=== PATIENT | male | born 1995 | race Caucasian/White ===

== ENCOUNTER 2022-03-25 06:58 | Day surgery (SDC) | payer BC ==
[2022-03-25] MEDS ORDERED: CEFAZOLIN SODIUM 1 GM/VIAL ONE (07:23)
[2022-03-25] MEDS ORDERED: NA CHLORIDE 0.9% 50 ML ONE (07:23)
[2022-03-25] MEDS ORDERED: NA CHLORIDE 0.9% 1,000 ML ONE (07:23)
[2022-03-25] MEDS ORDERED: METHYLENE BLUE 0.5% 10 ML AMP ONE (07:30)
[2022-03-25] MEDS ORDERED: BUPIVACAINE 0.25% PF 10 ML VIAL ONE (07:30)
[2022-03-25] MEDS ORDERED: CELECOXIB 100 MG CAPSULE ONE (07:40)
[2022-03-25] MEDS ORDERED: ACETAMINOPHEN 500 MG TAB ONE (07:40)
[2022-03-25] MEDS ORDERED: INSULIN -REGULAR HUMAN 50 UNIT/0.5 ML ML ONE (08:03)
[2022-03-25] MEDS ORDERED: dexAMETHasone 10 MG/ML VIAL ONE (08:39)
[2022-03-25] MEDS ORDERED: FENTANYL CITR 100 MCG/2 ML ONE (08:39)
[2022-03-25] MEDS ORDERED: propofoL 200 MG/20 ML VIAL IV ONE (08:39)
[2022-03-25] MEDS ORDERED: MIDAZOLAM HCL 2 MG/2 ML INJ ONE (08:39)
[2022-03-25] MEDS ORDERED: KETOROLAC 30 MG/ML INJ ONE (08:39)
[2022-03-25] MEDS ORDERED: ONDANSETRON 4 MG/2 ML VIAL ONE ×2 (08:40→10:00)
[2022-03-25] MEDS ORDERED: LIDOCAINE 1% MPF 5 ML VIAL ONE (08:40)
[2022-03-25] MEDS ORDERED: KETAMINE HCL 500 MG/5 ML VIAL ONE (08:40)
[2022-03-25] MEDS ORDERED: ROCURONIUM 50 MG/5 ML VIAL IV ONE (08:40)
[2022-03-25] MEDS ORDERED: SODIUM HYPOCHLORITE 0.25% 473 ML ONE (08:51)
[2022-03-25] MEDS ORDERED: BUPIVACAINE 0.25% PF 10 ML VIAL IJ ONE (09:11)
[2022-03-25] MEDS ORDERED: METHYLENE BLUE 1% 10 ML AMP IV ONE (09:12)
--- NOTE | 2022-03-25 09:29 | P.OP ---
Preoperative diagnosis: Pilonidal Cyst with Abscess Postoperative diagnosis: Pilonidal Cyst with Abscess Primary procedure: Wide excisional debridement of Pilonidal Cyst with Abscess Anesthesia: GETA + Local Estimated blood loss: <20cc Specimen: debridement tissue Findings: cyst and abscess extended to rectum Complications: None Transferred to: Recovery Room Condition: Good
[2022-03-25] MEDS: MORPHINE 4 MG/ML SYR ONE ×2 (09:57→10:03)
[2022-03-25 10:00] VITALS: O2SAT 100
[2022-03-25] MEDS ORDERED: MORPHINE 4 MG/ML SYR ONE (10:13)
[2022-03-25] MEDS: HYDROMORPHONE HCL 1 MG/ML INJ ONE ×2 (10:13→10:20)
--- NOTE | 2022-03-25 10:21 | OP ---
Date of Procedure: 03/25/2022 Surgeon: Camila Peña MD, Preoperative Diagnosis: Pilonidal cyst with abscess. Postoperative Diagnosis: Pilonidal cyst with abscess. Procedure Performed: Excisional debridement of pilonidal cyst with abscess. Anesthesia: General endotracheal plus local with 0.25% Marcaine. Estimated Blood Loss: Less than 20 cc. Specimen: Debridement tissue. Findings: Cyst and abscess extending to the rectal wall. Complications: None. Condition: The patient transferred to recovery room in good condition. Procedure In Detail: After informed consent was obtained, the patient was brought to the operating r oom and prepped and draped in the usual sterile fashion. After adequate anesthesia achieved, I injec camila the area of the pilonidal cyst with tracking sinus tract using methylene blue. I then anesthetiz ed the skin overlying and made an elliptical incision around the area of redness inflation. I immedi ately encountered with some cyst like material. I performed a circumferential debridement down and f ollowed the tract of the methylene blue and tuft of hair which continued to go below the coccyx and t owards the rectal vault. The cavity extended almost to the muscle overlying the rectum. I performed a digital rectal examination and did not find any obvious connection of this area and methylene blue extended to this area. After all tissue was debrided, there was no obvious communication from the r ectum. The area was cleansed using sterile saline and then packed with sterile dressings the cavity of approximately 4-1/2 cm x 5 cm below the region of the sacrococcygeal area and extending to the rec suri vault as described up to and through the muscular planes of the gluteus muscles and the fascia ov erlying the coccyx. All of the tissue after being cleansed was inspected for proper hemostasis was a chieved. At this point, the area was then packed with Dakin soaked Kerlix and a sterile dressing sarita pricilla over top. The patient tolerated the procedure well without any complication and transferred to r ecovery room in good condition. All counts were correct at the end of the case. ERNESTINE/KEN Voice ID: [id number] Report ID: [id number]
[2022-03-25 10:33] VITALS: BP 135/87; TEMP 98
[2022-03-25] MEDS ORDERED: HYDROCODONE/APAP 10/325 TAB ONE (10:53)
== END 2022-03-25 11:08 | disposition home or self-care (01) ==
LOC: OR 06:58
PROVIDERS: ATTEND Surgery
PROC: 0JB90ZZ Excision of Buttock Subcutaneous Tissue and Fascia, Open Approach (ICD-10-PCS; principal; 2022-03-25 08:30)
DX: L05.01 Pilonidal cyst with abscess (principal); Z20.822 Contact with and (suspected) exposure to COVID-19
CPT/HCPCS: 82947; 88304; J0690; J1100; J1170; J1815; J2250; J2405; J2704; J3010; J7030; U0003